=== PATIENT | male | born 1960 | race American Indian/Alaskan Native ===

== ENCOUNTER 2022-07-12 16:50 | Emergency (ER) | payer MEDICARE, MEDICAID ==
[2022-07-12] MEDS ORDERED: Sodium Chloride 0.9% 10 ML Syringe FLUSH PRN (17:03)
[2022-07-12 17:30] LABS: ESTIMATED GFR 85 mL/min (>60)
== END 2022-07-12 20:05 | disposition home or self-care (01) ==
LOC: FB.ED 16:50
DX: G40.909 Epilepsy, unspecified, not intractable, without status epilepticus (principal)
CPT/HCPCS: 36415; 70450; 73030-LT; 73562-LT; 73610-LT; 73610-RT; 80053; 80307; 85025; 99284